=== PATIENT | female | born 1950 | race African-American/Black ===

== ENCOUNTER 2016-06-11 15:06 | Emergency (ER) | payer BC, OTHER ==
[~2016-06-11] VITALS: Ht 165.1 cm; Wt 90.9 kg
[2016-06-11 15:16] VITALS: Ht 165.1 cm; Wt 90.9 kg
[2016-06-11] MEDS ORDERED: IBUPROFEN 800 MG TAB PO ONE (15:30)
[2016-06-11] MEDS ORDERED: HYDROCODONE/APAP (5/325) TAB PO ONE ×2 (15:30→16:30)
--- NOTE | 2016-06-11 15:59 | RADRPT ---
PROCEDURE: XR left shoulder. CLINICAL INDICATION: fall, shoulder pain TECHNIQUE: AP, Internal and external rotation views of the left shoulder were performed. COMPARISON: None. FINDINGS: There is normal osseous mineralization and alignment. There is a fracture of the surgical neck of the humerus with medial and posterior displacement of th e distal fracture fragment by approximately 4 mm. There are degenerative changes of the left shoulder joint. The soft tissues are unremarkable. IMPRESSION: Surgical neck of the humerus fracture with medial and posterior displacement of the distal fracture fragment by approximately 4 mm. Severe changes of the left shoulder joint. .Tayla Patel MD, Date Time Electronically viewed and signed by .Tayla Patel MD, on 06/11/2016 15:59 .M/
[2016-06-11] MEDS ORDERED: VALS1TAB19 PO (16:10)
[2016-06-11] MEDS ORDERED: ADV25050 INHALATION (16:10)
[2016-06-11] MEDS ORDERED: CRES10 PO (16:10)
[2016-06-11] MEDS ORDERED: AMLO5TAB4 PO (16:10)
[2016-06-11] MEDS ORDERED: ALBU8.5H3 INH (16:10)
[2016-06-11] MEDS ORDERED: ASPI81TA3 PO (16:11)
--- NOTE | 2016-06-11 16:17 | ERD ---
ER Documentation Chief Complaint Date/Time DATE: 06/11/16 TIME: 16:13 Chief Complaint L shoulder pain HPI This is a 64-year-old female who presents to the emergency room for evaluation of left-sided shoulder pain. This patient states that she was in her bedroom and was cleaning some furniture and tripped and fell on her left side. She denies any head injury or any loss of consciousness and states that she is having pain in the left shoulder. She states it is a sharp and achy pain worse with any movement of the left shoulder. ROS All systems reviewed and are negative except as per history of present illness. Medications Home Meds Reported Medications Aspirin* (Aspirin* Chew) 81 Mg Tab.chew, 81 MG PO DAILY, TAB.CHEW 06/11/16 Rosuvastatin Calcium* (Crestor*) 10 Mg Tablet, 10 MG PO QHS, #30 TAB 06/11/16 Albuterol Sulfate* (Proair HFA*) 8.5 Gm Hfa.aer.ad, 2 PUFF INH Q4H Y for WHEEZING AND SOB, #1 INHALER 06/11/16 Valsartan/Hydrochlorothiazide (Diovan Hct 320-25 mg Tablet) 1 Each Tablet, 1 EACH PO DAILY, TAB 06/11/16 Salmeterol Xinaf/Fluticasone* (Advair*) 250-50 Diskus Inhaler, 1 INH INHALATION BID, #1 INHALER 06/11/16 Amlodipine Besylate* (Norvasc*) 5 Mg Tablet, 5 MG PO DAILY, TAB 06/11/16 Allergies Allergies: Coded Allergies: hydromorphone (Verified Allergy, Severe, 06/11/16) morphine (Verified Allergy, Severe, 06/11/16) sulfamethoxazole (Verified Allergy, Severe, 06/11/16) trimethoprim (Verified Allergy, Severe, 06/11/16) PMhx/Soc History of Surgery: Yes (disectomy, myoectomy x 2, bunionectomy) Anesthesia Reaction: No Hx Neurological Disorder: No Hx Respiratory Disorders: Yes (asthma) Hx Cardiac Disorders: Yes (htn, hyperlipids) Hx Psychiatric Problems: No Hx Miscellaneous Medical Probl: No Hx Alcohol Use: Yes (socially) Hx Substance Use: No Hx Tobacco Use: No Smoking Status: Never smoker Physical Exam Vitals Vital Signs Date Time Temp Pulse Resp B/P Pulse Ox O2 Delivery O2 Flow Rate FiO2 06/11/16 15:16 98.2 100 18 152/88 98 Physical Exam INITIAL VITAL SIGNS: Reviewed by me GENERAL: The patient is well developed and appropriate for usual state of health in no apparent distress HEENT: Pupils equal, round, and reactive to light. EOMI. There is no scleral icterus. NECK: C-spine is soft and supple, there is no meningismus. There is no cervical lymphadenopathy. LUNGS: Clear to auscultation bilaterally. There are no rales, wheezes or rhonchi. HEART: Regular rate and rhythm, no murmurs, clicks, rubs or gallops. ABDOMEN: Soft, non-tender, non-distended. There are bowel sounds in all four quadrants. No rebound or guarding. EXTREMITIES: Tender to palpation of the proximal humerus, no gross deformity, sensation is intact over the deltoid, palpable ulnar and radial pulses in the left upper extremity, there is no peripheral cyanosis or edema. No focal swelling or erythema. NEUROLOGICAL: The patient moves all four extremities with 5/5 strength. Cranial nerves II - XII are intact. Normal gait. Alert and oriented SKIN: There is no apparent rash or petechiae. HEME/LYMPHATIC: There is no evidence of excessive bruising or lymphedema. PSYCHIATRIC: The patient does not appear anxious or depressed. Results 24 hrs Current Medications Medications (Trade) Dose Ordered Sig/González Route PRN Reason Start Time Stop Time Status Last Admin Dose Admin Ibuprofen (Motrin) 800 mg ONCE ONCE PO 06/11/16 15:30 06/11/16 15:31 DC 06/11/16 15:26 Acetaminophen/ Hydrocodone Bitart ([place] (5/325)) 1 tab ONCE ONCE PO 06/11/16 15:30 06/11/16 15:31 DC 06/11/16 15:28 Procedures/MDM X-ray Shoulder 3V Interpreted by me: Bones: Surgical neck of the humerus fracture with medial and posterior displacement of the distal fracture fragment by approximately 4 mm. Severe changes of the left shoulder joint. Joints: No dislocation Foreign body: None This 65-year-old female who presents to the emergency room for evaluation of left-sided shoulder pain after a ground-level fall. This patient was found to have a surgical neck fracture of the humerus with mild displacement of the distal fracture fragment. She is neurovascularly intact with no sign of compartment syndrome or neurovascular compromise. I have spoken with her on- call orthopedic surgeon, Dr. Kelley who agrees this patient can be discharged with an arm sling with outpatient follow-up this week. I have relayed this information to the patient who states that she will follow-up with either Dr. Kelley, or referral for orthopedic doctor from her primary care physician Departure Diagnosis: Primary Impression: Left humeral fracture Additional Impression: Shoulder pain Condition: Stable BELEM SPRINGER DO Jun 11, 2016 16:17
[2016-06-11] MEDS ORDERED: IBUP800T25 PO (16:19)
[2016-06-11] MEDS ORDERED: HYDR-906 PO (16:19)
[2016-06-11 16:27] VITALS: BP 158/98; PULSE 97; RESP 20
[2016-06-11] MEDS ORDERED: ACET1TAB40 PO (19:23)
== END 2016-06-11 16:52 | disposition home or self-care (01) ==
LOC: E/R 15:06
DX: S42.302A Unspecified fracture of shaft of humerus, left arm, initial encounter for closed fracture (principal); I10 Essential (primary) hypertension; J45.909 Unspecified asthma, uncomplicated; W01.0XXA Fall on same level from slipping, tripping and stumbling without subsequent striking against object, initial encounter; Y92.9 Unspecified place or not applicable; Z79.82 Long term (current) use of aspirin
CPT/HCPCS: 73030